=== PATIENT | female | born 1965 | race Caucasian/White ===

== ENCOUNTER 2017-08-10 09:39 | Emergency (ER) | payer SELFPAY ==
--- NOTE | 2017-08-10 09:49 | ED ---
Adult Trauma - HPI Summary HPI Summary: 52 female presents to ED with complaints of facial trauma to her nose when at work that occurred approximately 2 hours ago. Patient states she was reaching for containers on the top shelf when they fell and came down striking her on her nose. Admits to epistaxis that has since resolved. Denies LOC, vision changes, lightheadedness, vision changes, nausea, vomiting, headache or any other complaints at this time. No PMHx. No medications. No blood thinners. No trouble breathing. Did not fall and did not hit her head. Patient states she wears glasses and it did hit those too. Admits to swelling. - History of Current Complaint Chief Complaint: EDFacialInjury Stated Complaint: FACIAL TRAUMA Time Seen by Provider: 08/10/17 09:47 Hx Obtained From: Patient Mechanism of Injury: Direct Blow - containers falling onto her nose from top shelf Ambulatory at the Scene: Yes Loss of Consciousness: no loss of consciousness Onset/Duration: Started Hours Ago, Traumatic, Resolved Onset of Pain: Immediate Onset Severity: Moderate Current Severity: Mild Pain Intensity: 2 Pain Scale Used: 0-10 Numeric Location: Other - nose Character: Aching Aggravating Factor(s): Nothing Alleviating Factor(s): Nothing Associated Signs & Symptoms: Positive: Negative - Allergy/Home Medications Allergies/Adverse Reactions: Allergies Allergy/AdvReac Type Severity Reaction Status Date / Time No Known Allergies Allergy Verified 08/10/17 09:48 PMH/Surg Hx/FS Hx/Imm Hx Endocrine/Hematology History: Reports: Hx Thyroid Disease Cardiovascular History: Denies: Hx Pacemaker/ICD Sensory History: Denies: Hx Hearing Aid Psychiatric History: Denies: Hx Panic Disorder - Cancer History Hx Chemotherapy: No Hx Radiation Therapy: No - Surgical History Surgery Procedure, Year, and Place: n/a - Immunization History Immunizations Up to Date: Yes Infectious Disease History: No Infectious Disease History: Denies: Traveled Outside the [place] in Last 30 Days - Family History Known Family History: Positive: None - Social History Alcohol Use: Rare Substance Use Type: Reports: None Smoking Status (MU): Current Every Day Smoker Amount Used/How Often: > 1/2 ppd Review of Systems Constitutional: Negative Positive: Other - nose pain with swelling Cardiovascular: Negative Respiratory: Negative Skin: Negative All Other Systems Reviewed And Are Negative: Yes Physical Exam Triage Information Reviewed: Yes Vital Signs On Initial Exam: Initial Vitals Temp Pulse Resp BP Pulse Ox 97.3 F 71 19 140/87 100 08/10/17 09:40 08/10/17 09:40 08/10/17 09:40 08/10/17 09:40 08/10/17 09:40 Vital Signs Reviewed: Yes Appearance: Positive: Well-Appearing, Well-Nourished, Pain Distress - mild Skin: Positive: Warm, Skin Color Reflects Adequate Perfusion, Dry, Other - ecchymosis noted on lateral nose, beginnings of racoon eyes. Negative: Cold, Cyanosis @, Mass @ Head/Face: Positive: Normal Head/Face Inspection, Other - beginnings of racoon eyes, swelling to nasal bone. Eyes: Positive: Normal, EOMI, ANYI, Conjunctiva Clear ENT: Positive: Normal ENT inspection, Hearing grossly normal, Pharynx normal, Nasal drainage - dried blood noted, TMs normal, Uvula midline, Other - nares patent dried blood noted, no septal hematoma noted Neck: Positive: Supple, Nontender Respiratory/Lung Sounds: Positive: Clear to Auscultation, Breath Sounds Present. Negative: Rales, Rhonchi, Wheezes Cardiovascular: Positive: Normal, RRR, Pulses are Symmetrical in both Upper and Lower Extremities. Negative: Murmur, Rub Bowel Sounds: Positive: Present Musculoskeletal: Positive: Normal, Strength/ROM Intact Neurological: Positive: Normal, Sensory/Motor Intact, Alert, Oriented to Person Place, Time, NV Bundle Intact Distally, Normal Gait - [place] Coma Scale Best Eye Response: 4 - Spontaneous Best Motor Response: 6 - Obeys Commands Best Verbal Response: 5 - Oriented Diagnostics - Vital Signs Vital Signs Temp Pulse Resp BP Pulse Ox 08/10/17 09:40 97.3 F 71 19 140/87 100 - Laboratory Lab Statement: Any lab studies that have been ordered have been reviewed, and results considered in the medical decision making process. - CT maxillofacial CT Interpretation: Positive (See Comments) - NASAL BONE FRACTURES WITH SOFT TISSUE SWELLING OF THE NASAL BRIDGE CT Interpretation Completed By: Radiologist Adult Trauma Course/Dx - Course Course Of Treatment: maxillofacial CT obtained and showed nasal bone minimally displaced fracture. epistaxis resolved, airway patent. no other fractures or concerns for head injury due to symptoms GABRIEL and PE. No other complaints. ice, ibuprofen and follow up ENT. given ibuprofen while in ED. aware of worsening signs and symptoms to watch out for and return if occur. no concern for concussion or head injury at this time. - Diagnoses Differential Diagnosis/HQI/PQRI: Positive: Contusion(s), Fracture, Dislocation, Other - concussion, head injury Provider Diagnoses: Nasal bone fracture Discharge - Discharge Plan Condition: Stable Disposition: HOME Patient Education Materials: Nasal Fracture (ED) Referrals: Chris Irizarry DO [Doctor of Osteopathy] - Carlitos Dean MD [Medical Doctor] - Additional Instructions: Continue use ice and ibuprofen for pain and inflammation. Follow up with ENT, call and make an appointment. Any new or worsening symptoms please seek medical attention promptly. Follow up with PCP.
--- NOTE | 2017-08-10 10:17 | RAD ---
INDICATION: Nasal injury COMPARISON: None TECHNIQUE: Axial source images were acquired from the vertex of the mandible through the orbits. Coronal and sagittal reconstructed images were acquired. FINDINGS: Bones: There are mildly displaced anterior nasal bone fractures with associated soft tissue swelling. There is no other facial bone fracture. Orbits: The globes and intraconal structures appear intact. The optic nerves are symmetric. Extraocular muscles appear normal. There is no intraconal inflammatory change or retrobulbar mass.. Paranasal sinuses: The paranasal sinuses are clear. Brain: There are no acute abnormalities of the visualized brain parenchyma. Soft tissues: There is soft tissue swelling about the anterior nasal bone fractures Other: None The visualized soft tissue elements about the neck appear normal. IMPRESSION: NASAL BONE FRACTURES WITH SOFT TISSUE SWELLING OF THE NASAL BRIDGE
--- OUTSIDE RECORDS SUMMARY | 2017-08-10 10:18 | XMS REPORT ---
:1965 External Reference #:[id number] Author Organization [facility] Address [address] [place] [address] Phone [phone] Care Team Providers Name Role Phone HCP given Primary Care Physician Unavailable Payers Type Date Identification Numbers Payment Provider Subscriber Commercial Policy Number: [id number] [facility] Thao D Emilie Group Name: [employer] [address] PayID: [id number] [place] [address] Problems Date Description Provider Status Onset: 10/07/2012 Pure hypercholesterolemia [place] Active Onset: 07/27/2016 Hypothyroidism Stephanie Denson PA Active Onset: 07/27/2016 Tobacco user Stephanie Denson PA Active Family History Date Family Member(s) Problem(s) Comments General Breast Cancer 5 1/2 sister's and one paternal cousin; mat grandmother Father CABG x4 in his 70s; Sxs present for a couple yrs leading up to this Father Peripheral Vascular stenting to legs in his Disease (PVD) 70s Mother Depression Mother breast lumps has had multiple biopsies, all benign Onset: (age 76 Mother Breast Cancer Years) Number of Children 1 First Daughter [facility] 2001 Number of Siblings 1 full sister, 5 stepsisters (on father's side), 1 stepbrother First Sister Gallstones First Sister Obesity Paternal Grandfather due to ND () - in his 40s Maternal Grandmother Breast Cancer in her 60s (double mastectomy) Maternal Aunts Breast Cancer uncertain age Social History Type Date Description Comments 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 Cigarette Use 07/27/2016 Light tobacco smoker (10 <1/2 ppd or fewer cigarettes/day) ETOH Use Denies alcohol use Recreational Drug Use Denies Drug Use Smoking Patient is a current smoker, smokes every day Exercise Type/Frequency Exercises sporadically Current Currently Active The patient is currently sexually active Contraceptive Methods Current methods of control used include condoms # Partners in a Lifetime ~10 partners in lifetime as of 05/28 Allergies, Adverse Reactions, Alerts Date Description Reaction Status Severity Comments 06/20/2006 NKDA active Medications Medication Date Status Form Strength Qnty SIG Indications Ordering Provider Naproxen 07/29/ Active Tablets 1 qd prn (Pt Unknown 2017 not sure of strength) Levothyroxine 07/27/ Active Tablets 125mcg 90tabs 1 tab by E03.9 Silcoff, Sodium 2017 mouth every Carlos, day M.D. Womens One 10/04/ Active Tablets one po daily Unknown Daily 2012 Levothyroxine 07/30/ Hx Tablets 100mcg 30tabs 1 by mouth E03.9 Silcoff, Sodium 2015 - every day; Carlos 07/27/ for thyroid M.D. 2016 Ibuprofen 02/04/ Hx Capsules 200mg as needed Unknown 2014 - 2017 Levothyroxine 08/25/ Hx Tablets 88mcg 90tabs 1 by mouth 244.9 Silcoff, Sodium 2013 - every day Carlos 07/30/ M.D. 2015 Levothyroxine 01/02/ Hx Tablets 75mcg 90tabs Take One Silcoff, Sodium 2012 - Tablet By Carlos 08/25/ Mouth Once M.D. 2013 Daily Levothyroxine 10/08/ Hx Tablets 50mcg 30tabs 1 tab po qd Silcoff, Sodium 2012 - on empty Carlos 01/02/ stomach, 30 M.D. 2013 min before first meal of the day Estro Blend 10/04/ Hx one po daily Unknown Supplement 2012 - 2014 Ibuprofen 10/03/ Hx Tablets 800mg 1 tab po Vera 2012 - tid, as Brian 02/04/ prescribed 2014 prn Cephalexin 09/03/ Hx Capsules 500mg 14caps 1 tablet bid 681.01 Akil, 2009 - x 7 days Carlos, 10/09/ M.D. 2011 Amoxicillin 01/08/ Hx Tablets 500mg 30tabs 1 PO tid 461.9 Akil 2007 - Carlos, 01/18/ M.D. 2008 Clarinex 01/07/ Hx Tablets 5mg 10samp 1 PO qd 477.9 Akil, 2007 - le Carlos, 10/09/ M.D. 2011 Immunizations CPT Code Status Date Vaccine Lot # [id number] Given 07/30/2017 Influenza Virus Vaccine, Quadrivalent, Split, [id number] Preservative Free U-Flu Given 05/12/2016 Influenza,Unspecified [id number] Given 10/11/2011 Pneumococcal Immunization [id number] Given 10/11/2011 Adacel or Boostrix, TDaP [id number] Given 07/23/1998 Td Immunization Vital Signs Date Vital Result Comment 07/30/2017 BP Systolic 126 mmHg BP Diastolic 78 mmHg Height 68 inches 5'8" Weight 187.00 lb BMI (Body Mass Index) 28.4 kg/m2 07/27/2016 BP Systolic 132 mmHg BP Diastolic 88 mmHg Height 68.25 inches 5'8.25" Weight 182.00 lb BMI (Body Mass Index) 27.5 kg/m2 02/05/2015 BP Systolic 130 mmHg BP Diastolic 80 mmHg Height 68 inches 5'8" Weight 169.00 lb BMI (Body Mass Index) 25.7 kg/m2 10/19/2014 BP Systolic 140 mmHg BP Diastolic 88 mmHg Weight 169.00 lb 08/03/2014 BP Systolic 122 mmHg BP Diastolic 86 mmHg Height 68 inches 5'8" Weight 171.00 lb BMI (Body Mass Index) 26.0 kg/m2 10/21/2013 BP Systolic 134 mmHg BP Diastolic 84 mmHg 10/20/2013 BP Systolic 142 mmHg BP Diastolic 85 mmHg Heart Rate 82 /min Height 68.74 inches 5'8.74" Weight 190.00 lb BMI (Body Mass Index) 28.3 kg/m2 01/15/2013 BP Systolic 129 mmHg BP Diastolic 81 mmHg Heart Rate 77 /min Weight 197.00 lb 10/07/2012 BP Systolic 131 mmHg BP Diastolic 71 mmHg Heart Rate 68 /min Height 69 inches 5'9" Weight 199.00 lb BMI (Body Mass Index) 29.4 kg/m2 Last Menstrual Period [id number] 10/11/2011 BP Systolic 114 mmHg BP Diastolic 71 mmHg Heart Rate 68 /min Height 68.5 inches 5'8.50" Weight 189.00 lb BMI (Body Mass Index) 28.3 kg/m2 Last Menstrual Period [id number] 09/10/2009 BP Systolic 125 mmHg BP Diastolic 82 mmHg Body Temperature 71.0 F Height 68.75 inches 5'8.75" Weight 190.00 lb BMI (Body Mass Index) 28.3 kg/m2 Last Menstrual Period [id number] 09/03/2009 BP Systolic 117 mmHg BP Diastolic 81 mmHg Heart Rate 71 /min Weight 190.00 lb 01/08/2008 BP Systolic 100 mmHg BP Diastolic 68 mmHg Body Temperature 98.3 F Height 68.9 inches 5'8.90" Weight 200.00 lb BMI (Body Mass Index) 29.6 kg/m2 Last Menstrual Period 0 11/22/2007 BP Systolic 96 mmHg BP Diastolic 58 mmHg Height 68.9 inches 5'8.90" Weight 207.00 lb BMI (Body Mass Index) 30.7 kg/m2 09/07/2006 BP Systolic 120 mmHg BP Diastolic 82 mmHg Height 68.9 inches 5'8.90" Weight 210.00 lb BMI (Body Mass Index) 31.1 kg/m2 Last Menstrual Period [id number] 06/20/2006 BP Systolic 110 mmHg BP Diastolic 64 mmHg Height 68.75 inches 5'8.75" Weight 211.00 lb BMI (Body Mass Index) 31.4 kg/m2 Results Test Date Test Result H/L Range Note Laboratory test 07/30/2017 TSH (Thyroid Stim 2.18 mcIU/mL 0.34-5.60 finding Horm) Laboratory test 01/17/2017 TSH (Thyroid Stim 1.32 mcIU/mL 0.34-5.60 finding Horm) Laboratory test 01/15/2017 Surgical Interface SEE RESULT BELOW 1, 2 finding Order Laboratory test 07/27/2016 Cytology SEE RESULT BELOW 3 finding Human Papilloma Virus Rna Negative Negative 4 Laboratory test finding 07/27/2016 TSH (Thyroid Stim 6.03 mcIU/mL High 0.34-5.60 Horm) Vitamin D Total 25(Oh) 37.2 ng/mL 30-50 Basic Metabolic Panel 07/27/2016 Sodium 135 mmol/L 133-145 Potassium 4.0 mmol/L 3.5-5.0 Chloride 103 mmol/L 101-111 Co2 Carbon Dioxide 29 mmol/L 22-32 Anion Gap 3 mmol/L 2-11 Glucose 72 mg/dL 70-100 Blood Urea Nitrogen 14 mg/dL 6-24 Creatinine 0.77 mg/dL 0.51-0.95 BUN/Creatinine Ratio 18.2 8-20 Calcium 9.1 mg/dL 8.6-10.3 Egfr Non- 79.0 >60 Egfr 101.6 >60 5 Laboratory test finding 11/05/2015 T3 Free 3.10 pg/mL 2.5-3.9 TSH (Thyroid Stim Horm) 4.38 ?IU/mL 0.34-5.60 Free T4 (Free Thyroxine) 0.87 ng/dL 0.61-1.12 Laboratory test 07/29/2015 TSH (Thyroid Stim 10.25 ?IU/mL High 0.34-5.60 finding Horm) Laboratory test 02/05/2015 TSH (Thyroid Stim 5.46 ?IU/mL 0.34-5.60 finding Horm) GC/Chlamydia Amplified 02/05/2015 Chlamydia trachomatis Negative Negative Rna Rna Neisseria gonorrhoeae (GC) Rna Negative Negative 6 HIV 1/2 AB Evaluation 02/05/2015 HIV 1 2 Antibody Nonreactive Nonreactive 7 Hepatitis B Radha AB 02/05/2015 Hepatitis B Surface AB Nonreactive Nonreactive Titer Hep B Surf AB Level < 3.10 mIU/mL <12 8 Laboratory test finding 02/05/2015 Hepatitis C Antibody Nonreactive Nonreactive 9 RPR 02/05/2015 Pediatric/Maternal NO Syphilis IgG Nonreactive Nonreactive 10 RPR TNP Nonreactive RPR Titer TNP Laboratory test 08/03/2014 TSH (Thyroid 5.40 IU/mL 0.34-5.60 finding Stimulating Horm) HIV 1/2 AB Evaluation 08/03/2014 HIV 1 2 Antibody Nonreactive Nonreactive 11 Laboratory test 08/03/2014 Hepatitis C Antibody Nonreactive Nonreactive finding Laboratory test 12/18/2013 TSH (Thyroid 4.20 IU/mL 0.34-5.60 finding Stimulating Horm) Free T4 0.92 ng/mL 0.61-1.12 T4 6.58 g/dL 6.09-12.23 Laboratory test 10/21/2013 Cytology RUN DATE: , 13 finding <SEE NOTE> HPV High Risk 10/21/2013 Human Papillomavirus See Comment 12, 14 Source HPV High Risk Type 16, PCR Negative Negative 12 HPV High Risk Type 18, PCR Negative Negative 12 HPV Other Risk types Negative Negative 12, 15 Ua Inhouse 10/21/2013 Ua Glucose - Ua Bilirubin - Ua Ketones - Ua Specific [place] 1.005 Ua PH -6.0 Ua Protein - Ua Urobilinogen - Ua Nitrite - Ua Leukocytes - Comp Metabolic Panel 10/20/2013 Sodium 137 mmol/L 133-145 Potassium 3.5 mmol/L Low 3.7-5.6 Chloride 104 mmol/L 101-111 Co2 Carbon Dioxide 27 mmol/L 22-32 Anion Gap 6 mmol/L 2-11 Glucose 82 mg/dL 70-100 Blood Urea Nitrogen 12 mg/dL 6-24 Creatinine 0.80 mg/dL 0.51-0.95 BUN/Creatinine Ratio 15.0 8-20 Calcium 9.3 mg/dL 8.6-10.3 Total Protein 6.8 g/dL 6.4-8.9 Albumin 4.4 g/dL 3.2-5.2 Globulin 2.4 g/dL 2-4 Albumin/Globulin Ratio 1.8 1-3 Total Bilirubin 0.90 mg/dL 0.2-1.0 Alkaline Phosphatase 59 U/L 34-104 Alt 19 U/L 7-52 Ast 18 U/L 13-39 Egfr Non- 76.6 >60 Egfr 98.5 >60 16 Laboratory test finding 10/20/2013 Cortisol 8.65 g/dL 17 CBC Auto Diff 10/20/2013 White Blood Count 9.5 10^3/uL 4.8-10.8 Red Blood Count 4.08 10^6/uL 4.0-5.4 Hemoglobin 13.6 g/dL 12.0-16.0 Hematocrit 39 % 35-47 Mean Corpuscular Volume 96 fL 80-97 Mean Corpuscular Hemoglobin 33 pg High 27-31 Mean Corpuscular HGB Conc 34 g/dL 31-36 Red Cell Distribution Width 13 % 10.5-15 Platelet Count 267 10^3/uL 150-450 Mean Platelet Volume 9 um3 7.4-10.4 Abs Neutrophils 6.8 10^3/uL 1.5-7.7 Abs Lymphocytes 2.1 10^3/uL 1.0-4.8 Abs Monocytes 0.5 10^3/uL 0-0.8 Abs Eosinophils 0 10^3/uL 0-0.6 Abs Basophils 0 10^3/uL 0-0.2 Abs Nucleated RBC 0 10^3/uL Granulocyte % 71.4 % 38-83 Lymphocyte % 22.1 % Low 25-47 Monocyte % 5.7 % 1-9 Eosinophil % 0.3 % 0-6 Basophil % 0.5 % 0-2 Nucleated Red Blood Cells % 0 Laboratory test finding 10/20/2013 Free T4 0.94 ng/mL 0.61-1.12 18 T4 6.32 g/dL 6.09-12.23 19 TSH (Thyroid Stimulating Horm) 5.39 IU/mL 0.34-5.60 20 Lipid Profile (Trig/Chol/HDL) 08/04/2013 Triglycerides 54 mg/dL 40-200 Cholesterol 239 mg/dL High Less than 200 HDL Cholesterol 81 mg/dL High 40-60 21 Cholesterol/HDL Ratio 3.0 Average 1-4.44 LDL Cholesterol 147.2 High Less Than 100 22 Laboratory test 08/04/2013 TSH (Thyroid 7.95 miu/mL High 0.34-5.60 23 finding Stimulating Horm) Laboratory test 02/26/2013 TSH (Thyroid 5.37 miu/mL 0.34-5.60 finding Stimulating Horm) Laboratory test 12/31/2012 TSH (Thyroid 9.74 miu/mL High 0.34-5.60 finding Stimulating Horm) Thyroid Autoantibodies 10/08/2012 Thyroid Peroxidase 622.2 IU/mL High Less Than 9.0 Antibodies Thyroglobulin Antibody 720 IU/mL <116 24 Laboratory test finding 10/08/2012 T4 4.9 g/mL Low 5.0-12.0 Free T4 0.43 ng/mL Low 0.61-1.24 Comp Metabolic Panel 10/07/2012 Sodium 135 mmol/L 133-145 Potassium 4.0 mmol/L 3.5-5.0 Chloride 103 mmol/L 101-111 Co2 Carbon Dioxide 24.0 mmol/L 22-32 Anion Gap 8.0 mmol/L 2-11 Glucose 83 mg/dL 70-100 Blood Urea Nitrogen 13 mg/dL 6-24 Creatinine 0.80 mg/dL 0.50-1.40 BUN/Creatinine Ratio 16.3 8-20 Calcium 9.2 mg/dL 8.1-9.9 Total Protein 6.8 g/dL 6.2-8.1 Albumin 4.0 g/dL 3.6-5.4 Globulin 2.8 g/dL 2-4 Albumin/Globulin Ratio 1.4 1-3 Total Bilirubin 0.9 mg/dL 0.4-1.5 Alkaline Phosphatase 53 U/L 30-110 Alt 19 U/L 14-54 Ast 20 U/L 12-42 Egfr Non- 76.9 >60 Egfr 98.9 >60 25 Lipid Profile (Trig/Chol/HDL) 10/07/2012 Triglycerides 61 mg/dL 40-200 Cholesterol 213 mg/dL High Less than 200 HDL Cholesterol 71 mg/dL High 40-60 26 Cholesterol/HDL Ratio 3.0 Average 1-4.44 LDL Cholesterol 129.8 mg/dL High Less Than 100 27 Laboratory test 10/07/2012 TSH (Thyroid 21.21 miu/mL High 0.34-5.60 28 finding Stimulating Horm) CBC Auto Diff 10/07/2012 White Blood Count 7.6 10^3/uL 4.8-10.8 Red Blood Count 3.94 10^6/uL Low 4.0-5.4 Hemoglobin 13.0 g/dL 12.0-16.0 Hematocrit 39 % 35-47 Mean Corpuscular Volume 99 fL High 80-97 Mean Corpuscular Hemoglobin 33 pg High 27-31 Mean Corpuscular HGB Conc 33 g/dL 31-36 Red Cell Distribution Width 13 % 10.5-15 Platelet Count 217 10^3/uL 150-450 Mean Platelet Volume 9 um3 7.4-10.4 Abs Neutrophils 4.7 10^3/uL 1.5-7.7 Abs Lymphocytes 2.2 10^3/uL 1.0-4.8 Abs Monocytes 0.5 10^3/uL 0-0.8 Abs Eosinophils 0.1 10^3/uL 0-0.6 Abs Basophils 0 10^3/uL 0-0.2 Abs Nucleated RBC 0 10^3/uL Granulocyte % 61.7 % 38-83 Lymphocyte % 29.7 % 25-47 Monocyte % 7.0 % 1-9 Eosinophil % 1.0 % 0-6 Basophil % 0.6 % 0-2 Nucleated Red Blood Cells % 0 Laboratory test 10/11/2011 Cytology <SEE 29 finding NOTE> Comp Metabolic Panel 10/11/2011 Sodium 134 mmol/L Low 135-145 Potassium 3.9 mmol/L 3.5-5.0 Chloride 104 mmol/L 101-111 Co2 (Carbon Dioxide) 23.0 mmol/L 22-32 Anion Gap 7.0 mmol/L 2-11 30 Glucose 76 mg/dL 70-100 BUN 17 mg/dL 6-24 Creatinine 0.9 mg/dL 0.50-1.40 One Over Creatinine 1.11 BUN/Creatinine Ratio 18.9 8-20 Calcium 8.6 mg/dL 8.1-9.9 Total Protein 7.5 GM/DL 6.2-8.1 Albumin 4.1 GM/DL 3.6-5.4 Globulin 3.4 GM/DL 2-4 Albumin/Globulin Ratio 1.2 1-3 Bilirubin Total 1.2 mg/dL 0.4-1.5 31 Alkaline Phosphatase 56 U/L 30-110 Alt (SGPT) 17 U/L 14-54 Ast (Sgot) 18 U/L 12-42 eGFR Non- 67.4 > 60 eGFR 86.7 > 60 32 CBC Auto Diff 10/11/2011 White Blood Count 7.1 CUMM 4.8-10.8 Red Cell Count 4.24 CUMM 4.2-5.4 Hemoglobin 14.4 g/dL 12.0-16.0 Hematocrit 41 % 35-47 Mean Corpuscular Volume 97 um3 79-97 Mean Corpuscular Hemoglob 34 pg High 27-31 Mean Corpuscular HGB Cone 35 g/dL 32-36 Redcell Distribution WDTH 13 % 10.5-15 Platelet Count 220 CUMM 150-450 Mean Platelet Volume 9.1 um3 7.4-10.4 Gran % 60.6 % 38-83 Lymph % 31.2 % 25-47 Mononuclear % 6.8 % 1-9 Eosinophil % 1.0 % 0-6 Basophil % 0.4 % 0-2 Abs Lymphs 2.2 1.0-4.8 Abs Mononuclear 0.5 0-0.8 Absolute Neutrophil Count 4.3 1.5-7.7 Abs Eosinophils 0.1 0-0.6 Abs Basophils 0 0-0.2 Lipid Profile (Trig/Chol/HDL) 10/11/2011 Triglyceride 47 mg/dL 40-200 Cholesterol 227 mg/dL High Less Than 200 33 High Density Lipoprotein 69 mg/dL High 40-60 34 Cholesterol/HDL Ratio 3.29 AVERAGE 1-4.44 Low Density Lipoprotein 149 mg/dL High Less Than 100 35 Laboratory test 09/10/2009 Cytology <SEE 36 finding NOTE> CBC With Electronic 09/10/2009 White Blood Count 6.7 CUMM 4.8-10.8 37 Diff Red Cell Count 3.94 CUMM Low 4.2-5.4 37 Hemoglobin 13.1 g/dL 12.0-16.0 37 Hematocrit 38 % 35-47 37 Mean Corpuscular Volume 95 um3 79-97 37 Mean Corpuscular Hemoglob 33 pg High 27-31 37 Mean Corpuscular HGB Cone 35 g/dL 32-36 37 Redcell Distribution WDTH 13 % 10.5-15 37 Platelet Count 238 CUMM 150-450 37 Mean Platelet Volume 8.7 um3 7.4-10.4 37 Gran % 50.9 % 38-83 37 Lymph % 39.6 % 25-47 37 Mononuclear % 7.7 % 1-9 37 Eosinophil % 1.4 % 0-6 37 Basophil % 0.4 % 0-2 37 Abs Lymphs 2.7 1.0-4.8 37 Abs Mononuclear 0.5 0-0.8 37 Absolute Neutrophil Count 3.4 1.5-7.7 37 Abs Eosinophils 0.1 0-0.6 37 Abs Basophils 0 0-0.2 37 Lipid Profile (Trig/Chol/HDL) 09/10/2009 Triglyceride 48 mg/dL 40-200 37 Cholesterol 204 mg/dL High Less Than 200 37, 38 High Density Lipoprotein 66 mg/dL High 40-60 37, 39 Cholesterol/HDL Ratio 3.09 AVERAGE 1-4.44 37 Low Density Lipoprotein 128 mg/dL High Less Than 100 37, 40 Comp Metabolic Panel 09/10/2009 Sodium 136 mmol/L 135-145 37 Potassium 4.0 mmol/L 3.5-5.0 37 Chloride 104 mmol/L 101-111 37 Co2 (Carbon Dioxide) 26.0 mmol/L 22-32 37 Anion Gap 6.0 mmol/L 2-11 37, 41 Glucose 76 mg/dL 70-100 37, 42 BUN 14 mg/dL 6-24 37 Creatinine 0.80 mg/dL 0.50-1.40 37 One Over Creatinine 1.20 37 BUN/Creatinine Ratio 17.5 8-20 37 Calcium 9.1 mg/dL 8.1-9.9 37, 43 Total Protein 6.6 GM/DL 6.2-8.1 37 Albumin 4.0 GM/DL 3.6-5.4 37 Globulin 2.6 GM/DL 2-4 37 Albumin/Globulin Ratio 1.5 1-3 37 Bilirubin Total 1.4 mg/dL 0.4-1.5 37, 44 Alkaline Phosphatase 62 U/L 30-110 37 Alt (SGPT) 21 U/L 14-54 37 Ast (Sgot) 23 U/L 12-42 37 eGFR Non- 82.8 > 60 37 eGFR 100.2 > 60 37, 45 Laboratory test 09/07/2006 Cytology 46 finding <SEE NOTE> Vad 08/31/2006 Vad Final NONREACTIVE Nonreactive 47 Lipid Profile 08/31/2006 Cholesterol/HDL 3.63 AVERAGE 1-4.44 48 (Trig/Chol/HDL) Ratio Cholesterol 207 mg/dL High Less Than 200 48, 49 Triglyceride 37 mg/dL Low 40-200 48 High Density Lipoprotein 57 mg/dL 40-60 48 Low Density Lipoprotein 143 mg/dL High Less Than 100 48, 50 1 [id number] 2 SEE RESULT BELOW Name: THAO CISNEROS : [address]: Javier Francisco MD Acct: [id number] Unit: [id number] AGE: 51 Location: [facility] Re01/15/17 SEX: F Status: DEP REF SPEC: [id number] ANGIE: 01/15/17 [facility] DR: Javier Francisco MD REQ: [id number] RECD: 01/15/17 STATUS: WOO ANNE DR: Carlos Barnard MD _ ORDERED: LEVEL 4/2 COMMENTS: [id number] FINAL DIAGNOSIS 1. Colon, cecum, biopsy: -- Hyperplastic polyp. 2. Colon, rectum, biopsy: -- Tubular adenoma. -- No high grade dysplasia or malignancy. CLINICAL HISTORY No history given POST-OPERATIVE DIAGNOSIS Colonoscopy into terminal ileum, prep good - 2 small polyps removed, mild sigmoid diverticulosis. Conclusions/Plan: Two polyps removed GROSS DESCRIPTION 1. The specimen is received in formalin labeled, Biopsy Cecal Polyp, and consists of a 0.5 x 0.4 by up to 0.2 cm aggregate of pabon-pink irregular to polypoid soft tissue fragments which is submitted entirely in one cassette. 2. The specimen is received in formalin labeled, Biopsy Rectal Polyp, and consists of a 0.6 x 0.4 x 0.2 cm aggregate of pabon-pink irregular to polypoid soft tissue fragments which is submitted entirely in one cassette. Signed (signature on file) Lenore Pitt MD 1054 END OF REPORT * ML=Testing performed at Main Lab DEPARTMENT OF PATHOLOGY, [address] [place] [id number] Anthony Lopez M.D. Director [facility] # [id number] 3 SEE RESULT BELOW Name: JESSICATHAO OWENS : [address]: Stephanie LOPEZ Acct: [id number] Unit: [id number] AGE: 51 Location: [facility] Re07/27/16 SEX: F Status: REG REF SPEC: [id number] ANGIE: 07/27/16-[address]: Stephanie LOPEZ REQ: [id number] RECD: 07/27/163676 STATUS: SOUT _ ORDERED: IMAGE ANALYSIS, HPV/Thin Prep COMMENTS: [id number] FINAL DIAGNOSIS Negative for Intraepithelial lesion or Malignancy A. Ectocervical/Endocervical Specimen Adequacy: Satisfactory of evaluation Transformation zone component identified Patient Information: HPV: High risk HPV RNA testing regardless of pap results. Actual Specimen Date: 07/27/16 LMP If Unknown: 1.5 months ago Spec Date if unknown: 10/2012 ?: N Post Menopausal?: N Hysterectomy?: N Previous Abnormal Pap Smears?:N Date Time Test Result Flag (u) Normal Range 07/27/16 1101 HPV RNA Negative Negative The high-risk HPV types detected by the assay include: 16, 18, 31, 33, 35, 39, 45, 51, 52, 56, 58, 59, 66, and 68. Signed (signature on file) ROBBIE Mercado(ASCP) 07/28 1352 This Pap test was evaluated with the assistance of the Private PracticePrep Test Imaging System. Due to cytologic findings at the maintenance mechanic 2nd shift microscope, comprehensive manual rescreening by a Drapery Operator may be required. The Pap Smear is a screening test designed to aid in the detection of premalignant and malignant conditions of the uterine cervix. It is not a diagnostic procedure and should not be used as the sole means of detecting cervical cancer. Both false- positive and false- negative reports do occur. Depending on your risk status, a Pap smear should be obtained and evaluated every 1-3 years. END OF REPORT * ML=Testing performed at Main Lab DEPARTMENT OF PATHOLOGY, [address] [place] [address] Anthony Lopez M.D. Director [facility] # [id number] RUN DATE: 07/28/16 [facility] LIVE PAGE 1 Patient: THAO CISNEROS [id number] (Continued) 4 The high-risk HPV types detected by the assay include: 16, 18, 31, 33, 35, 39, 45, 51, 52, 56, 58, 59, 66, and 68. 5 Because ethnic data is not always readily available, this report includes an eGFR for both -Americans and non- Americans. The National Kidney Disease Education Program (NKDEP) does not endorse the use of the MDRD equation for patients that are not between the ages of 18 and 70, are , have extremes of body size, muscle mass, or nutritional status, or are non- or non-. According to the National Kidney Foundation, irrespective of diagnosis, the stage of the disease is based on the level of kidney function: Stage Description GFR(mL/min/1.73 m(2)) 1 Kidney damage with normal or decreased GFR 90 2 Kidney damage with mild decrease in GFR 60-89 3 Moderate decrease in GFR 30-59 4 Severe decrease in GFR 15-29 5 Kidney failure <15 (or dialysis) 6 Female urine specimens have been self-validated by [facility] and have been granted conditional assay approval by [facility]. 7 It is recognized that currently available assays for the detection of antibodies to HIV-1 and/or HIV-2 may not detect all infected individuals. HIV antibodies may be undetectable in some stages of the infection and in some clinical conditions. The performance of this assay has not been established for populations of infants or children. Assayed by Chemiluminescence Microparticle Immunoassay on the Siemens Advia Centaur CP. Values obtained with different methods or kits cannot be used interchangeably.The diagnostic specificity of the ADVIA Centaur 1/O/2 Enhanced assay in the low risk population was 99.90% (6052/6058) with a 95% confidence interval of 99.78 to 99.96%. 8 This assay does not differentiate between reactivity due to a vaccine-induced immune response or an immune response induced by infection with HBV. 9 , Pediatric (<=12yrs) or Maternal?: NO 10 Warning: A positive result is not useful for establishing a diagnosis of syphilis. In most situations, such a result may reflect a prior treated infection; a negative result can exclude a diagnosis of syphilis except for incubating or early primary disease. 11 It is recognized that currently available assays for the detection of antibodies to HIV-1 and/or HIV-2 may not detect all infected individuals. HIV antibodies may be undetectable in some stages of the infection and in some clinical conditions. The performance of this assay has not been established for populations of infants or children. Assayed by Chemiluminescence Microparticle Immunoassay on the Siemens Advia Centaur CP. Values obtained with different methods or kits cannot be used interchangeably.The diagnostic specificity of the ADVIA Centaur 1/O/2 Enhanced assay in the low risk population was 99.90% (6052/6058) with a 95% confidence interval of 99.78 to 99.96%. 12 AWAITING HPV RESULTS 13 RUN DATE: 10/22/13 [facility] LAB LIVE PAGE 1 RUN TIME: [address] [place] [id number] Specimen Inquiry Name: THAO CISNEROS : [address]: Jen OJEDA Acct: [id number] Unit: [id number] AGE: 48 Location: [facility] Re10/21/13 SEX: F Status: REG REF SPEC: [id number] ANGIE: 10/21/13-[address]: Jen OJEDA REQ: [id number] RECD: 10/21/13 STATUS: SOUT _ ORDERED: IMAGE ANALYSIS, HPV/Thin Prep FINAL DIAGNOSIS Negative for Intraepithelial lesion or Malignancy COMMENTS: Specimen sent to [facility] in [place], [place] on 10/22/13 by [id number] at 1249. Results will be reported separately. A. Ectocervical/Endocervical Specimen Adequacy: Satisfactory of evaluation Transformation zone component identified Patient Information: HPV: High risk HPV DNA testing regardless of pap results. Actual Specimen Date: 10/21/13 Last Menstrual Date: 10/09/13 Cautery: N IUD: N Lesion, grossly demonstrate: N ?: N Post Menopausal?: N Hysterectomy?: N Signed (signature on file) ROBBIE Johnson (ASCP) 10/22 1329 This Pap test was evaluated with the assistance of the ThinPrep Test Imaging System. Due to cytologic findings at the maintenance mechanic 2nd shift microscope, comprehensive manual rescreening by a Drapery Operator may be required. The Pap Smear is a screening test designed to aid in the detection of premalignant and malignant conditions of the uterine cervix. It is not a diagnostic procedure and should not be used as the sole means of detecting cervical cancer. Both false- positive and false- negative reports do occur. Depending on your risk status, a Pap smear shoudl be obtained and evaluated every 1-3 years. END OF REPORT * ML=Testing performed at [facility] DEPARTMENT OF PATHOLOGY, [address] [place] [address] Anthony Lopez M.D. Director [facility] Permit #[id number] RESULT: Ectocervical/Endocervical 15 The following Other High Risk HPV types were not detected: 31, 33, 35, 39, 45, 51, 52, 56, 58, 59, 66, and 68 Test Performed by: [place] [address] Adoption Manager: Sree Leo III, M.D. 16 Because ethnic data is not always readily available, this report includes an eGFR for both -Americans and non- Americans. The National Kidney Disease Education Program (NKDEP) does not endorse the use of the MDRD equation for patients that are not between the ages of 18 and 70, are , have extremes of body size, muscle mass, or nutritional status, or are non- or non-. According to the National Kidney Foundation, irrespective of diagnosis, the stage of the disease is based on the level of kidney function: Stage Description GFR(mL/min/1.73 m(2)) 1 Kidney damage with normal or decreased GFR 90 2 Kidney damage with mild decrease in GFR 60-89 3 Moderate decrease in GFR 30-59 4 Severe decrease in GFR 15-29 5 Kidney failure <15 (or dialysis) 17 AM 8.7-22.4 PM <10 18 FASTING 19 FASTING 20 FASTING 21 HDL Interpretation: Undesirable: High Risk: Less than 40 mg/dL Desirable: Low Risk: Greater than 60 mg/dL 22 LDL Interpretation: Low Risk Optimal Level: LDL Less than 100 mg/dL Near or Above Optimal: LDL 100-129 mg/dL Borderline High Risk: LDL 130-159 mg/dL High Risk: LDL 160-189 mg/dL Very High Risk: LDL Greater than 189 mg/dL 23 PT IS FASTING 24 If thyroglobulin antibody measurement is performed to assess the reliability of the thyroglobulin assay for thyroid cancer patient follow-up, a thyroglobulin antibody result=/>22 IU/mL may result in falsely decreased thyroglobulin values. The thyroglobulin antibody testing method is an electrochemiluminescence assay manufactured by [employer] and performed on the Modular or Satish system. Values obtained from different assay methods or kits may be different and cannot be used interchangeably. Test Performed by: [place] [address] Adoption Manager: Sree Leo III, M.D. 25 Because ethnic data is not always readily available, this report includes an eGFR for both -Americans and non- Americans. The National Kidney Disease Education Program (NKDEP) does not endorse the use of the MDRD equation for patients that are not between the ages of 18 and 70, are , have extremes of body size, muscle mass, or nutritional status, or are non- or non-. According to the National Kidney Foundation, irrespective of diagnosis, the stage of the disease is based on the level of kidney function: Stage Description GFR(mL/min/1.73 m(2)) 1 Kidney damage with normal or decreased GFR 90 2 Kidney damage with mild decrease in GFR 60-89 3 Moderate decrease in GFR 30-59 4 Severe decrease in GFR 15-29 5 Kidney failure <15 (or dialysis) 26 HDL Interpretation: Undesirable: High Risk: Less than 40 MG/DL Desirable: Low Risk: Greater than 60 MG/DL 27 LDL Interpretation: Low Risk Optimal Level: LDL Less than 100 MG/DL Near or Above Optimal: LDL 100-129 MG/DL Borderline High Risk: LDL 130-159 MG/DL High Risk: LDL 160-189 MG/DL Very High Risk: LDL Greater than 189 MG/DL 28 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 29 ---- RUN DATE: 10/12/11 [facility] NMI LIVE PAGE 1 RUN TIME: 1210 Specimen Inquiry RUN USER: INTERFACE -- Name: THAO CISNEROS Status: REG REF Re10/11/11 Age/Sex: 46/F Unit#: [id number] Location: [facility] : 65 -- Specimen: [id number] SOUSocorro Spec Date:10/11/11 [facility] Dr: Jen OJEDA Spec Type: CYTOLOGY Received:10/12/11 Copies to: SOURCE ECTOCERVICAL/ENDOCERVICAL Thin Prep with Reflex HPV Test PATIENT INFORMATION ACTUAL COLLECTION DATE: 10/11/11 ? No POST MENOPAUSAL? No HYSTERECTOMY? No LAST MENSTRUAL PERIOD: 09/20/11 ADEQUACY OF SPECIMEN Satisfactory for evaluation * Transformation zone component identified * DIAGNOSIS NEGATIVE FOR INTRAEPITHELIAL LESION OR MALIGNANCY * This Pap test was evaluated with the assistance of the ThinPrep Pap Test Imaging System. The Pap Smear is a screening test designed to aid in the detection of premalign ant and malignant conditions of the uterine cervix. It is not a diagnostic procedure a nd should not be used as the sole means of detecting cervical cancer. Both false- positiv e and false-negative reports do occur. Depending on your risk status, a Pap smear winter uld be obtained and evaluated every one to three years. Final Interpretation electronically signed by: Haris BAILEY([facility]) 10/12/11 120 9 -- -- DEPARTMENT OF PATHOLOGY, [address] [place] [address] [facility] Permit #[id number] Anthony Lopez M.D. Director Herminio Russell M.D. Blindmaker Dir leann -- 30 Anion gap measurement may be of limited value in the presence of any alkalosis, especially in a combined acid base disorder. . 31 A metabolite of Naproxen, O-desmethylnaproxen, has been shown to interfere with the Jendrassik-Bolivar method for measuring total bilirubin. Samples from patients who have taken Naproxen have shown spurious elevation in total bilirubin levels. 32 Because ethnic data is not always readily available, this report includes an eGFR for both -Americans and non- Americans. The National Kidney Disease Education Program (NKDEP) does not endorse the use of the MDRD equation for patients that are not between the ages of 18 and 70, are , have extremes of body size, muscle mass, or nutritional status, or are non- or non-. According to the National Kidney Foundation, irrespective of diagnosis, the stage of the disease is based on the level of kidney function: Stage Description GFR(mL/min/1.73 m(2)) 1 Kidney damage with normal or decreased GFR 90 2 Kidney damage with mild decrease in GFR 60-89 3 Moderate decrease in GFR 30-59 4 Severe decrease in GFR 15-29 5 Kidney failure <15 (or dialysis) 33 CHOLESTEROL INTERPRETATION: Desirable: Less than 200 MG/DL Borderline-High Risk: 200-239 MG/DL High-Risk: 240 MG/DL and over 34 HDL INTERPRETATION: Undesirable: High Risk: Less than 40 MG/DL Desirable: Low Risk: Greater than 60 MG/DL 35 LDL INTERPRETATION: Low Risk Optimal Level: LDL Less than 100 MG/DL Near or Above Optimal: LDL 100-129 MG/DL Borderline High Risk: LDL 130-159 MG/DL High Risk: LDL 160-189 MG/DL Very High Risk: LDL Greater than 189 MG/DL 36 ---- RUN DATE: 09/14/09 [facility] NMI LIVE PAGE 1 RUN TIME: 1105 Specimen Inquiry RUN USER: INTERFACE -- Name: THAO CISNEROS Status: REG REF Re09/10/09 Age/Sex: 44/F Unit#: [id number] Location: [facility]. : 65 -- Specimen: [id number] SOUT Spec Date: 09/10/[address]: Jen OJEDA Spec Type: CYTOLOGY Received: 09/13/09-1412 Copies to: SOURCE ECTOCERVICAL/ENDOCERVICAL Thin Prep with Reflex HPV Test PATIENT INFORMATION ACTUAL COLLECTION DATE: 09/10/09 ? No POST MENOPAUSAL? No HYSTERECTOMY? No LAST MENSTRUAL PERIOD: 09/03/09 ADEQUACY OF SPECIMEN Satisfactory for evaluation * Transformation zone component identified * Predominance of red blood cells * See note DIAGNOSIS NEGATIVE FOR INTRAEPITHELIAL LESION OR MALIGNANCY * NOTE Vial reprocessed due to excess blood and scant cellularity on first slide. Reprocessing successful. This Pap test was evaluated with the assistance of the ThinPrep Pap Test Imaging System. The Pap Smear is a screening test designed to aid in the detection of premalign ant and malignant conditions of the uterine cervix. It is not a diagnostic procedure a nd should not be used as the sole means of detecting cervical cancer. Both false- positiv e and false-negative reports do occur. Depending on your risk status, a Pap smear winter uld be obtained and evaluated every one to three years. -- DEPARTMENT OF PATHOLOGY, [address] [place] [address] [facility] Permit #[id number] Maris Garcia M.D. Blindmaker Dir leann -- -- RUN DATE: 09/14/09 [facility] NMI LIVE PAGE 2 RUN TIME: 1105 Specimen Inquiry RUN USER: INTERFACE -- Name: THAO CISNEROS Status: REG REF Re09/10/09 Age/Sex: 44/F Unit#: [id number] Location: [facility] : 65 -- -- CONTINUED -- Final Interpretation electronically signed by: Haris BAILEY([facility]) 09/14/09 110 5 -- -- DEPARTMENT OF PATHOLOGY, [address] [place] [address] [facility] Permit #[id number] Anthony Lopez M.D. Director Herminio Russell M.D. Blindmaker Dir leann -- 37 cytology on separate report. SL 38 CHOLESTEROL INTERPRETATION: Desirable: Less than 200 MG/DL Borderline-High Risk: 200-239 MG/DL High-Risk: 240 MG/DL and over 39 HDL INTERPRETATION: Undesirable: High Risk: Less than 40 MG/DL Desirable: Low Risk: Greater than 60 MG/DL 40 LDL INTERPRETATION: Low Risk Optimal Level: LDL Less than 100 MG/DL Near or Above Optimal: LDL 100-129 MG/DL Borderline High Risk: LDL 130-159 MG/DL High Risk: LDL 160-189 MG/DL Very High Risk: LDL Greater than 189 MG/DL 41 Anion gap measurement may be of limited value in the presence of any alkalosis, especially in a combined acid base disorder. . 42 Note change in reference range as of 03/12/08. The change was based on recommendations from the [place] [employer]. 43 Please note change in reference range effective 07 . 44 A metabolite of Naproxen, O-desmethylnaproxen, has been shown to interfere with the Jendrassik-Bolivar method for measuring total bilirubin. Samples from patients who have taken Naproxen have shown spurious elevation in total bilirubin levels. 45 Because ethnic data is not always readily available, this report includes an eGFR for both -Americans and non- Americans. The National Kidney Disease Education Program (NKDEP) does not endorse the use of the MDRD equation for patients that are not between the ages of 18 and 70, are , have extremes of body size, muscle mass, or nutritional status, or are non- or non-. According to the National Kidney Foundation, irrespective of diagnosis, the stage of the disease is based on the level of kidney function: Stage Description GFR(mL/min/1.73 m(2)) 1 Kidney damage with normal or decreased GFR 90 2 Kidney damage with mild decrease in GFR 60-89 3 Moderate decrease in GFR 30-59 4 Severe decrease in GFR 15-29 5 Kidney failure <15 (or dialysis) 46 ---- RUN DATE: 09/13/06 [facility] NMI LIVE PAGE 1 RUN TIME: 1541 Specimen Inquiry RUN USER: INTERFACE [id number] THAO CISNEROS 41/F <REG REF 09/07> ([id number]) Carlos Braswell MD -- Specimen: [id number] SOUT Spec Date: 09/07/06 [facility] Dr: Carlos garcia MD Spec Type: CYTOLOGY Received: 09/10/06-1056 Copies to: SOURCE ECTOCERVICAL/ENDOCERVICAL Thin Prep with Reflex HPV Test PATIENT INFORMATION ACTUAL COLLECTION DATE: 09/07/06 LAST MENSTRUAL PERIOD: 08/31/06 ADEQUACY OF SPECIMEN Satisfactory for evaluation * Transformation zone component identified * DIAGNOSIS NEGATIVE FOR INTRAEPITHELIAL LESION OR MALIGNANCY * This Pap test was evaluated with the assistance of the ThinPrep Pap Test Imaging System. The Pap Smear is a screening test designed to aid in the detection of premalign ant and malignant conditions of the uterine cervix. It is not a diagnostic procedure a nd should not be used as the sole means of detecting cervical cancer. Both false- positive and false-negative reports do occur. Depending on your risk status, a Pap smear winter uld be obtained and evaluated every one to three years. Haris BAILEY([facility]) 09/13/06 -- -- DEPARTMENT OF PATHOLOGY, [address] [place] [address] [facility] Permit #[id number] Tommie Abdalla II, M.D. Director Maris Garcia -- 47 FINAL INTERPRETATION: No HIV antibody is detected. . This information has been disclosed to you from confidential records which are protected by [facility] law. State law prohibits you from making further disclosure of this information without the specific written consent of the person to whom it pertains, or as otherwise permitted by law. Any unauthorized further disclosure in violation of state law may result in a fine or care home sentence or both. General authorization for the release of medical or other information is not, except in limited circumstances set forth in Part 63, Title 10, of [place]CRR, sufficient authorization for further disclosure. Disclosure of confidential HIV information that occurs as the result of a general authorization for the release of medical or other information will be in violation of the state law and may result in a fine or a care home sentence. . 48 FASTING 49 Classification: Borderline High . 50 CALCULATED LDL APPROXIMATES THE VALUE OF A DIRECT LDL MEASUREMENT. Classification: Borderline High . Procedures Date CPT Code Description Status Comment 07/30/2017 65599 Remove Impact Cerumen Completed Irrigation/Lavage Unilateral 07/30/2017 33114 Destruction Of Skin Lesions Completed Up To 14 Flat Warts/Molluscum Contag 01/15/2017 Colonoscopy Completed 2017:1 TA, 1 HP (P: repeat 5yrs) 11/20/2016 Mammogram Completed 2016:benign; 2015:benign; 2014:normal, wishes to continue yealry screening 09/03/2009 30533 X-Ray Finger(S) Two Views Completed 09/07/2006 20949 X-Ray Foot Three Views Completed Encounters Type Date Location Provider CPT E/M Dx Office Visit 07/30/2017 1:15p Main Office Carlos Barnard M.D. 05602 H61.22 D23.39 H93.13 E03.9 Z23 Z41.8 Office Visit 07/27/2016 10:05a [place] [address] Z00.00 Z12.4 Z12.31 Z12.11 F17.210 E03.9 Office Visit 10/19/2014 1:20p Main Office Jhoana Solano RPA-Silvino 14439 610.1 V76.19 V76.10 V65.49 Office Visit 08/03/2014 9:20a Main Office Jhoana Solano RPA-C 38102 244.9 078.19 780.8 V65.49 V76.51 Office Visit 10/21/2013 8:40a Main Office Jen Roberts PConstantin 88238 244.9 V70.0 V72.31 780.79 V76.12 V76.2 Office Visit 10/20/2013 9:00a Main Office [place] [address] 244.9 296.99 781.1 V61.10 Office Visit 01/15/2013 11:40a Main Office [place]. 59566 244.9 V65.49 Office Visit 10/07/2012 9:00a Main Office Jen Roberts, P.A. 21637 V70.0 V72.31 V76.10 272.0 V78.0 305.1 840.9 Office Visit 10/11/2011 9:00a Main Office Jen Roberts, P.A. 28125 V70.0 V76.10 V72.31 V77.91 327.52 V76.51 V03.82 V06.1 V07.2 Office Visit 09/10/2009 3:00p Main Office Jen Roberts, P.A. 02125 V76.10 V72.31 V77.91 305.1 V76.2 Office Visit 09/03/2009 2:00p Main Office Jen Armando, P.A. 70934 681.01 729.81 Office Visit 01/08/2008 1:30p Main Office Carlos Barnard M.D. 69666 477.9 465.9 Office Visit 11/22/2007 1:45p Main Office Carlos Barnard M.D. 15257 V76.10 311 611.72 V72.31 Office Visit 09/07/2006 10:45a Main Office Carlos Barnard M.D. 78883 300.4 719.47 V76.2 V76.10 V72.31 Office Visit 06/20/2006 3:30p Main Office Carlos Barnard M.D. 86267 300.4 V77.91 V69.2 V76.10 305.1 Plan of Care 07/30/2017 - Carlos Barnard M.D.H61.22 Impacted cerumen, left earComments: Cerumen removed by nursing staff using water irrigation. I examined her ear post removal and her canal and TM appeared normal.D23.39 Other benign neoplasm of skin of other parts of faceComments:Benign angioma on L medial cheek. Treated w/ light electrocautery after local w/ <1/2cc plain 1% xylocaine wc she tolerated well. Lesion was much less obvious after Tx.H93.13 Tinnitus, bilateralComments:Advised re use of white noise Tx for quiet times eg put on a fan for sleep. Discussed importance of minimizing loud noise exposures. Discussed potential role of NSAIDs and encouraged to try using Tylenol instead of NSAIDs to see if she gets adequate pain control with this. If tinnitus is a persistent significant nuisance she will call back for referral to histopath tech to consider further eval, tinnitue retraining etc.E03.9 Hypothyroidism, [id number] Encounter for immunizationComments:Encouraged flu vaccine wc was accepted. VIS provided.Z41.8 Encntr for oth proc for purpose oth than [facility]
[2017-08-10] MEDS ORDERED: Ibuprofen TAB* 600 MG PO ONE (11:56)
[2017-08-10 12:45] VITALS: BP 135/82
== END 2017-08-10 12:45 | disposition home or self-care (01) ==
LOC: ED 09:39
DX: S02.2XXA Fracture of nasal bones, initial encounter for closed fracture (principal); W20.8XXA Other cause of strike by thrown, projected or falling object, initial encounter; Y92.9 Unspecified place or not applicable; F17.210 Nicotine dependence, cigarettes, uncomplicated
CPT/HCPCS: 70486; 99282; A9270-GY

== ENCOUNTER 2018-04-12 12:45 | Emergency (ER) | payer OTHER ==
[2018-04-12 13:10] VITALS: BP 143/91
--- NOTE | 2018-04-12 13:27 | UC ---
Upper Extremity HPI - HPI Summary HPI Summary: 53 year old female presents with onset of right elbow pain yesterday. States she noticed some mild aching in the medial aspect of the elbow early in the day but she was lifting a heavy tub at work when her elbow "gave out", pain became more severe, and she noticed some numbness and tingling in her fingers. Pain with movement especially extension. Swelling of the elbow last night that has improved. She used an arm sling and took ibuprofen this morning with good relief from pain. 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 - History of Current Complaint Chief Complaint: UCUpperExtremity Stated Complaint: ELBOW INJURY Time Seen by Provider: 04/12/18 12:58 Hx Obtained From: Patient Hx Last Menstrual Period: 03/29/18 Onset/Duration: Sudden Onset Severity Initially: Moderate Severity Currently: Mild Pain Intensity: 4 Character: Aching Aggravating Factor(s): Extension Alleviating Factor(s): OTC Meds, Rest Associated Signs And Symptoms: Positive: Swelling, Numbness/Tingling. Negative : Redness, Bruising, Fever Related History: Occupational Injury, Dominant Hand Right - Allergies/Home Medications Allergies/Adverse Reactions: Allergies Allergy/AdvReac Type Severity Reaction Status Date / Time No Known Allergies Allergy Verified 04/12/18 12:59 PMH/Surg Hx/FS Hx/Imm Hx Endocrine History: Hypothyroidism - Surgical History Surgical History: Yes Surgery Procedure, Year, and Place: L leg repair 1995. lasix both eyes 2018 - Family History Family History: Noncontributory - Social History Occupation: Employed Full-time Lives: With Family Alcohol Use: Occasionally Substance Use Type: None Smoking Status (MU): Current Every Day Smoker Amount Used/How Often: > 1/2 ppd Review of Systems Constitutional: Negative Skin: Negative Respiratory: Negative Cardiovascular: Negative Musculoskeletal: Arthralgia - Right elbow. See HPI. 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 MILD OSTEOARTHRITIS. 2. JOINT EFFUSION. 3. NO DISPLACED FRACTURE. 4. THE PRESENCE OF A JOINT EFFUSION MAY INDICATE OCCULT FRACTURE IN THE SETTING OF TRAUMA. Upper Extremity Course/Dx - Course Course Of Treatment: 53 year old female with right elbow pain after lifting heavy tub at work. Tender to medial aspect of right elbow. X-ray negative for fracture although joint effusion was noted and could represent occult fracture however feel this is unlikely considering mechanism of injury. Recommend conservative treatment using RICE and OTC NSAIDs. Follow up with ortho if no improvement. - Differential Dx/Diagnosis Differential Diagnosis/HQI/PQRI: Arthritis, Bursitis, Strain, Sprain, Other - medial epicondylitis Provider Diagnoses: right elbow sprain Discharge - Sign-Out/Discharge Documenting (check all that apply): Patient Departure All imaging exams completed and their final reports reviewed: Yes - Discharge Plan Condition: Stable Disposition: HOME Patient Education Materials: Elbow Sprain (ED) Referrals: Carlos Barnard MD [Primary Care Provider] - Ruby Freeman MD [Medical Doctor] - 2 Weeks (if no improvement) Additional Instructions: Rest the arm as much as possible however you should perform gentle range of motion exercises every couple of hours while awake to keep the elbow from becoming stiff. Apply ice to the area for 15-20 minutes 3-4 times a day for next few days. Keep the arm elevated at the level of the heart to help reduce swelling. Take ibuprofen (Advil, Motrin) 600 mg every 8 hours with food for next 7 days then may take as needed for pain. I have provided you the number for orthopedic surgery to follow up in 2 weeks if symptoms do not improve. - Billing Disposition and Condition Condition: STABLE Disposition: Home
--- NOTE | 2018-04-12 13:33 | RAD ---
HISTORY: pain COMPARISONS: None VIEWS: 4 , Frontal, lateral, and oblique views of the right elbow FINDINGS: BONE DENSITY: Normal. BONES: There is no displaced fracture. 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 There is a posterior supracondylar fat pad consistent with joint effusion. ALIGNMENT: There is no dislocation. SOFT TISSUES: Unremarkable. OTHER FINDINGS: None. IMPRESSION: 1. MILD OSTEOARTHRITIS. 2. JOINT EFFUSION. 3. NO DISPLACED FRACTURE. 4. THE PRESENCE OF A JOINT EFFUSION MAY INDICATE OCCULT FRACTURE IN THE SETTING OF TRAUMA.
== END 2018-04-12 13:52 | disposition home or self-care (01) ==
LOC: UCEAST 12:45
DX: S53.401A Unspecified sprain of right elbow, initial encounter (principal); X50.0XXA Overexertion from strenuous movement or load, initial encounter; Y93.89 Activity, other specified; Y92.511 Restaurant or cafe as the place of occurrence of the external cause; Y99.0 Civilian activity done for income or pay; F17.210 Nicotine dependence, cigarettes, uncomplicated
CPT/HCPCS: 99212; G0463